=== PATIENT | female | born 1955 | race Caucasian/White ===

== ENCOUNTER 2024-12-15 20:10 | Emergency (ER) | payer OTHER, MEDICAID ==
[~2024-12-15] VITALS: Ht 160 cm; Wt 67.5 kg
[~2024-12-15 20:10] MED LIST: ARIP30TA2 PO; ASPI81CH43 PO; ATOR-507 PO; CALC-239 PO; CALC500C65 PO; CITA-77 PO; CLON0.5T4 PO; CLOP75TA28 PO; GUAI400T13 PO; IBUP-1456 PO; ISOS20TA49 PO; LORA10TA6 PO; MULTTAB99 PO; NIAC-10 PO; NITR0.4S31 SL; NITROLINGUAL SPRAY; PYRI100T51 PO; TOPI100T68 PO; TRAZ-228 PO
--- NOTE | 2024-12-15 21:36 | DVH ---
EXAM: XY L HAND 3V XRAY, XY L FOREARM XRAY CLINICAL INDICATION: Fall/trauma TECHNIQUE: XY L HAND 3V XRAY, XY L FOREARM XRAY, 3 views Comparison: None FINDINGS/IMPRESSION: Nondisplaced distal radial fracture.
--- NOTE | 2024-12-15 21:36 | DVH ---
EXAM: XY L FOREARM XRAY CLINICAL INDICATION: Fall/trauma TECHNIQUE: XY L FOREARM XRAY Comparison: None FINDINGS/IMPRESSION: Nondisplaced distal radial fracture.
--- NOTE | 2024-12-15 21:37 | DVH ---
CLINICAL INDICATION: Fall/trauma TECHNIQUE: 2 radiographic views of the left humerus were obtained. Comparison: None FINDINGS/IMPRESSION: There is no evidence of acute fracture or dislocation. The visualized joint space is well maintained. The alignment is anatomical. There is no radiopaque foreign body.
[2024-12-15] MEDS: HYDROcodone-ACET 10/325MG TAB PO ONE (21:40)
[2024-12-15] MEDS ORDERED: IBUP1TAB5 PO (21:53)
[2024-12-15] MEDS ORDERED: HYDR-4902 PO (21:53)
--- NOTE | 2024-12-15 21:55 | ED.PDOC ---
Musculoskeletal HPI Comments This patient is a 69-year-old female who arrives the ED today for evaluation of the left wrist and forearm pain concerns status post ground level fall approximately 1 hour prior to arrival. Patient states she was at home and trying to exit her screen door that was stuck. She pushed aggressively and when the screen door open, the patient fell forward landing on her left hand, wrist and forearm. Patient denies any head trauma. No blood loss. Vital signs were stable on arrival. Chief Complaint: Upper Extremity Time Seen by MD: 20:11 Primary Care Provider: ALDA Reviewed Notes: Nurses Notes Allergies: Coded Allergies: Cephalexin (Verified Allergy, 01/11/12) Fluoxetine (Verified Allergy, 01/11/12) Prochlorperazine (Verified Allergy, 01/11/12) Home Meds Reported Medications Clonazepam (Clonazepam) 0.5 Mg Tab, 0.5 MG PO TID 01/12/12 Ibuprofen (Ibuprofen) 800 Mg Tab, 800 MG PO Q4HP 01/12/12 Loratadine (Loratadine) 10 Mg Tab, 10 MG PO DAILY 01/12/12 Isosorbide Mononitrate (Isosorbide Mononitrate) 20 Mg Tab, 60 MG PO DAILY 01/12/12 Topiramate (Topiramate) 100 Mg Tab, 100 MG PO BID 01/12/12 Atorvastatin Calcium (Lipitor) 40 Mg Tab, 40 MG PO HS 01/12/12 Multiple Vitamin (Mvi Tab) 1 Tab Tb, 1 TAB PO DAILY 01/12/12 Aspirin (Asa) 81 Mg Ch, 81 MG PO DAILY 01/12/12 Calcium Ascorbate (Vitamin C) 500 Mg Tab, 500 MG PO DAILY 01/12/12 Trazodone Hcl (Trazodone Hcl) 100 Mg Tab, 100 MG PO HS 01/12/12 Citalopram Hydrobromide (Citalopram Hydrobromide) 20 Mg Tab, 20 MG PO DAILY 01/12/12 Calcium Carbonate (Antacid) 500 Mg Chw, 500 MG PO PRN 01/12/12 Pyridoxine Hcl (Vitamin B 6) 100 Mg Tab, 100 MG PO DAILY 01/12/12 Nitroglycerin (Nitroglycerin) 0.4 Mg Sl, 0.4 MG SL Q5MIN 01/12/12 Clopidogrel Bisulfate (Plavix) 75 Mg Tab, 75 MG PO DAILY 01/12/12 [Nitrolingual [place]] No Conflict Check, 400 MCG 01/12/12 Niacin (Antihyperlipidemic) (Niaspan) 500 Mg Tab, 500 MG PO HS 01/12/12 Guaifenesin (Guaifenesin) 400 Mg Tab, 400 MG PO Q4HP 01/12/12 Aripiprazole (Abilify) 30 Mg Tab, 30 MG PO HS 01/12/12 Information Source: Patient Mode of Arrival: Ambulatory Location: Left Extremity Location: Forearm, Wrist Timing: Minutes Prehospital treatment: None Severity: Moderate Able to Move Extremity: Yes Bear Weight: Fully Pain: Moderate Hand Dominance: Right Mechanism: FOOSH Circumstances: Fall Onset of Symptoms: Spontaneous Symptoms: Swelling, Pain DVT Risk Factors: NONE Past Medical History PAST MEDICAL HISTORY: Angina, CVA, High Lipids, HTN, [place] Surgical History: Appendectomy, Hysterectomy, Tonsillectomy Family History Family History: Unobtainable Social History Smoker: Cigarettes Alcohol: Rarely Drugs: Denies Drug Use Lives In: Home Constitutional: denies: chills, diaphoresis, fatigue, fever, malaise, sweats, weakness, others EENTM: denies: blurred vision, double vision, ear bleeding, ear discharge, ear drainage, ear pain, ear ringing, eye pain, eye redness, hearing loss, mouth pain, mouth swelling, nasal discharge, nose bleeding, nose congestion, nose pain, photophobia, tearing, throat pain, throat swelling, voice changes, others Respiratory: denies: cough, hemoptysis, orthopnea, SOB at rest, shortness of breath, SOB with excertion, stridor, wheezing, others Cardiovascular: denies: chest pain, dizzy spells, diaphoresis, Dyspnea on exertion, edema, irregular heart beat, left arm pain, lightheadedness, palpitations, PND, syncope, others Gastrointestinal: denies: abdomen distended, abdominal pain, blood streaked bowels, constipated, diarrhea, dysphagia, difficulty swallowing, hematemesis, melena, nausea, poor appetite, poor fluid intake, rectal bleeding, rectal pain, vomiting, others Genitourinary: denies: abnormal vagina bleeding, burning, dyspareunia, dysuria, flank pain, frequency, hematuria, incontinence, pain, , vagina discharge, urgency, others Neurological: denies: dizziness, fainting, headache, left sided numbness, left sided weakness, numbness, paresthesia, pre-existing deficit, right sided numbness, right sided weakness, seizure, speech problems, tingling, tremors, weakness, others Musculoskeletal: reports: others (Left forearm and left wrist pain); denies: back pain, gout, joint pain, joint swelling, muscle pain, muscle stiffness, neck pain Integumetry: denies: bruises, change in color, change in hair/nails, dryness, laceration, lesions, lumps, rash, wounds, others Allergic/Immunocompromised: denies: Difficulty Healing, Frequent Infections, Hives, Itching, others Hematologic/Lymphatic: denies: anemia, blood clots, easy bleeding, easy bruising, swollen glands, others Endocrine: denies: excessive hunger, excessive sweating, excessive thirst, excessive urination, flushing, intolerance to cold, intolerance to heat, unexplained weight gain, unexplained weight loss, others Psychiatric: denies: anxiety, bipolar disorder, depression, hopeless, panic disorder, schizophrenia, sleepless, suicidal, others All Other Systems: Reviewed and Negative Physical Exam General Appearance: Moderate Distress (Due to forearm and wrist pain concerns.), Normal HEENT: Normal ENT Inspection, Pharynx Normal, TMs Normal Neck: Full Range of Motion, Non-Tender, Normal, Normal Inspection Respiratory: Chest Non-Tender, Lungs Clear, No Accessory Muscle Use, No Respiratory Distress, Normal Breath Sounds Cardiovascular: No Edema, No JVD, No Murmur, No Gallop, Normal Peripheral Pulses, Regular Rate/Rhythm Breast Exam: Deferred Gastrointestinal: No Organomegaly, Non Tender, No Pulsatile Mass, Normal Bowel Sounds, Soft Genitalia: Deferred Pelvic: Deferred Rectal: Deferred Extremities: Other (Diffuse tenderness to palpation throughout the dorsal aspect of the left wrist extending into the hand and proximally into the forearm. Moderate reduced range of motion. No definitive crepitus noted. Distal neurovascularly intact.) Neurologic: Alert, No Motor Deficits, Normal Affect, Normal Mood, No Sensory Deficits Cerebellar Function: Normal Reflexes: Normal Skin: Dry, Normal Color, Warm Lymphatic: No Adenopathy Was a procedure done? Was a procedure done?: No Differential Diagnosis EXT Differential Diagnosis: Fracture, Sprain, Dislocation, Contusion, Strain X-Ray, Labs, Meds, VS Vital Signs Date Time Temp Pulse Resp B/P (MAP) Pulse Ox O2 Delivery O2 Flow Rate FiO2 12/15/24 21:42 92 20 94 Room Air 12/15/24 21:42 97.6 92 20 113/94 (100) 94 97.6 12/15/24 20:56 97.6 88 18 110/54 (72) 96 97.6 Current Medications Medications (Trade) Dose Ordered Sig/Rosita Route Start Time Stop Time Status Last Admin Acetaminophen/ Hydrocodone Bitart ([place] 10/325MG Tab) 1 tab ONCE ONCE PO 12/15/24 20:45 12/15/24 20:46 DC 12/15/24 21:40 X-Ray, Labs, Meds, VS Comment All studies performed the ED were evaluated by me personally. Imaging studies of the humerus, forearm and hand revealed a nondisplaced fracture of the distal radius. Patient was provided with a splint, sling and prescriptions for pain medication at discharge. Patient needs to follow up with the primary care provider in the next five days for re-evaluation and probable cast placement. Time of 1ST Reevaluation: 21:51 Reevaluation 1ST: Improved Consultation: PCP Patient Education/Counseling: Diagnosis, Treatment Family Education/Counseling: Diagnosis, Treatment Departure 1 Departure Time of Disposition: 21:54 Impression: Primary Impression: Nondisplaced fracture of distal end of left radius Disposition: 01 HOME / SELF CARE / HOMELESS Condition: Stable Additional Instructions: Advised patient utilize pain medication as needed for symptomatic relief. Patient should follow up with the primary care provider in five days for re- evaluation and probable cast placement. If patient is unable to follow up with the primary care, please call this facility at [phone] and asked for the orthopedic department supervised by Dr. Elizabeth for assistance with the cast placement. e-Prescriptions Hydrocodone-Acetaminophen (Hydrocodone Bitartrate/AC 5-325 mg) 1 Tab Tab 1 TAB PO Q6HP PRN, #20 TAB Prov: SAEID JAMES PAC 12/15/24 Ibuprofen Micronized (Ibuprofen) 600 Mg Tab 600 MG PO Q6HP PRN, #20 TAB Prov: SAEID JAMES PAC 12/15/24 Discharged With: Self, Friend Critical Care Note Critical Care Time?: No Stability Stability form required: No Heart Score Heart Score: Heart Score Response (Comments) Value History N/A 0 EKG N/A 0 Age N/A 0 Risk Factors N/A 0 Troponin N/A 0 Total 0 SAEID JAMES PAC Dec 15, 2024 21:55
[2024-12-15] MEDS: HYDROMORPHONE HCL 1 MG/ML INJ IM ONE (22:55)
[2024-12-15 22:57] VITALS: PULSE 88; RESP 18; O2SAT 99
[2024-12-15 23:25] VITALS: BP 142/88; PULSE 85; RESP 16; TEMP 98; O2SAT 98
== END 2024-12-15 23:36 | disposition home or self-care (01) ==
LOC: ER 20:10
DX: S52.502A Unspecified fracture of the lower end of left radius, initial encounter for closed fracture (principal); I10 Essential (primary) hypertension; F17.210 Nicotine dependence, cigarettes, uncomplicated; E78.5 Hyperlipidemia, unspecified; I21.9 Acute myocardial infarction, unspecified; Z86.73 Personal history of transient ischemic attack (TIA), and cerebral infarction without residual deficits; Z90.49 Acquired absence of other specified parts of digestive tract; Z90.710 Acquired absence of both cervix and uterus; Z79.02 Long term (current) use of antithrombotics/antiplatelets; Z79.82 Long term (current) use of aspirin; Z79.899 Other long term (current) drug therapy; Z88.1 Allergy status to other antibiotic agents; W19.XXXA Unspecified fall, initial encounter; Y93.89 Activity, other specified; Y92.89 Other specified places as the place of occurrence of the external cause; Y99.8 Other external cause status
CPT/HCPCS: 29125; 73060; 73090; 73130; 96372; 99284; J1170

== ENCOUNTER 2025-01-13 18:07 | Emergency (ER) | payer OTHER, MEDICAID ==
[~2025-01-13] VITALS: Ht 160 cm; Wt 64.1 kg
[~2025-01-13 18:07] MED LIST changes: +HYDR-4902 PO; +IBUP1TAB5 PO
[2025-01-13 18:49] VITALS: BP 153/77; PULSE 91; RESP 16; TEMP 97.6; O2SAT 95
--- NOTE | 2025-01-13 18:50 | ED.PDOC ---
Back pain HPI HPI Comments PT HAS C/O LEFT WRIST PAIN PT STATES 12/15/24 SHE FELL AND CAME INTO THE HOSPITAL AND THEY DIAGNOSED HER WITH A FX PT WAS PLACED IN A SPLINT AND WAS SUPPOSE TO FOLLOW UP WITH ORTHO PT STATES THERE WAS ALWAYS AN ISSUE AND WAS UNABLE TO F/O PT HAS SPLINT ON WITH TAPE WRAPPED AROUND IT. DENIES NEW INJURY/NUMBNESS/WEAKNESS Chief Complaint: Upper Extremity Time Seen by MD: 18:19 Primary Care Provider: ALDA Michael Notes: Nurses Notes, Medications, Allergies Allergies: Coded Allergies: Aripiprazole (Verified Allergy, Unknown, 01/13/25) Cephalexin (Verified Allergy, Unknown, 01/13/25) Fluoxetine (Verified Allergy, Unknown, 01/13/25) Prochlorperazine (Verified Allergy, Unknown, 01/13/25) Home Meds Active Scripts Hydrocodone-Acetaminophen (Hydrocodone Bitartrate/AC 5-325 mg) 1 Tab Tab, 1 TAB PO Q6HP PRN, #20 TAB Prov:SAEID JAMES PAC 12/15/24 Ibuprofen Micronized (Ibuprofen) 600 Mg Tab, 600 MG PO Q6HP PRN, #20 TAB Prov:SAEID JAMES PAC 12/15/24 Reported Medications Clonazepam (Clonazepam) 0.5 Mg Tab, 0.5 MG PO TID 01/12/12 Ibuprofen (Ibuprofen) 800 Mg Tab, 800 MG PO Q4HP 01/12/12 Loratadine (Loratadine) 10 Mg Tab, 10 MG PO DAILY 01/12/12 Isosorbide Mononitrate (Isosorbide Mononitrate) 20 Mg Tab, 60 MG PO DAILY 01/12/12 Topiramate (Topiramate) 100 Mg Tab, 100 MG PO BID 01/12/12 Atorvastatin Calcium (Lipitor) 40 Mg Tab, 40 MG PO HS 01/12/12 Multiple Vitamin (Mvi Tab) 1 Tab Tb, 1 TAB PO DAILY 01/12/12 Aspirin (Asa) 81 Mg Ch, 81 MG PO DAILY 01/12/12 Calcium Ascorbate (Vitamin C) 500 Mg Tab, 500 MG PO DAILY 01/12/12 Trazodone Hcl (Trazodone Hcl) 100 Mg Tab, 100 MG PO HS 01/12/12 Citalopram Hydrobromide (Citalopram Hydrobromide) 20 Mg Tab, 20 MG PO DAILY 01/12/12 Calcium Carbonate (Antacid) 500 Mg Chw, 500 MG PO PRN 01/12/12 Pyridoxine Hcl (Vitamin B 6) 100 Mg Tab, 100 MG PO DAILY 01/12/12 Nitroglycerin (Nitroglycerin) 0.4 Mg Sl, 0.4 MG SL Q5MIN 01/12/12 Clopidogrel Bisulfate (Plavix) 75 Mg Tab, 75 MG PO DAILY 01/12/12 [Nitrolingual [place]] No Conflict Check, 400 MCG 01/12/12 Niacin (Antihyperlipidemic) (Niaspan) 500 Mg Tab, 500 MG PO HS 01/12/12 Guaifenesin (Guaifenesin) 400 Mg Tab, 400 MG PO Q4HP 01/12/12 Aripiprazole (Abilify) 30 Mg Tab, 30 MG PO HS 01/12/12 Mode of Arrival: Ambulatory Past Medical History PAST MEDICAL HISTORY: Angina, CVA, High Lipids, HTN, [place] Surgical History: Appendectomy, Hysterectomy, Tonsillectomy Family History Family History: Unobtainable Social History Smoker: Cigarettes Alcohol: Rarely Drugs: Denies Drug Use Lives In: Home Constitutional: denies: chills, diaphoresis, fatigue, fever, malaise, sweats, weakness, others EENTM: denies: blurred vision, double vision, ear bleeding, ear discharge, ear drainage, ear pain, ear ringing, eye pain, eye redness, hearing loss, mouth pain, mouth swelling, nasal discharge, nose bleeding, nose congestion, nose pain, photophobia, tearing, throat pain, throat swelling, voice changes, others Respiratory: denies: cough, hemoptysis, orthopnea, SOB at rest, shortness of breath, SOB with excertion, stridor, wheezing, others Cardiovascular: denies: chest pain, dizzy spells, diaphoresis, Dyspnea on exertion, edema, irregular heart beat, left arm pain, lightheadedness, palpitations, PND, syncope, others Gastrointestinal: denies: abdomen distended, abdominal pain, blood streaked bowels, constipated, diarrhea, dysphagia, difficulty swallowing, hematemesis, melena, nausea, poor appetite, poor fluid intake, rectal bleeding, rectal pain, vomiting, others Genitourinary: denies: abnormal vagina bleeding, burning, dyspareunia, dysuria, flank pain, frequency, hematuria, incontinence, pain, , vagina discharge, urgency, others Neurological: denies: dizziness, fainting, headache, left sided numbness, left sided weakness, numbness, paresthesia, pre-existing deficit, right sided numbness, right sided weakness, seizure, speech problems, tingling, tremors, weakness, others Musculoskeletal: reports: others (LEFT WRIST PAIN ); denies: back pain, gout, joint pain, joint swelling, muscle pain, muscle stiffness, neck pain Integumetry: denies: bruises, change in color, change in hair/nails, dryness, laceration, lesions, lumps, rash, wounds, others Allergic/Immunocompromised: denies: Difficulty Healing, Frequent Infections, Hives, Itching, others Hematologic/Lymphatic: denies: anemia, blood clots, easy bleeding, easy bruising, swollen glands, others Endocrine: denies: excessive hunger, excessive sweating, excessive thirst, excessive urination, flushing, intolerance to cold, intolerance to heat, unexplained weight gain, unexplained weight loss, others Psychiatric: denies: anxiety, bipolar disorder, depression, hopeless, panic disorder, schizophrenia, sleepless, suicidal, others Physical Exam General Appearance: No Apparent Distress, Normal HEENT: Pharynx Normal Neck: Full Range of Motion, Non-Tender Respiratory: Lungs Clear, No Respiratory Distress, Normal Breath Sounds Cardiovascular: No Murmur, Normal Peripheral Pulses, Regular Rate/Rhythm Breast Exam: Deferred Gastrointestinal: Non Tender, Soft Genitalia: Deferred Pelvic: Deferred Rectal: Deferred Extremities: Normal capillary refill, Normal inspection, Normal range of mynor on, Non-tender Musculoskeletal : Location: Left (SPLINT IN PLACE. ) Apperance: Normal Neurologic: Alert, delinquent account clerk II-XII nml as Tested, No Motor Deficits, Normal Affect, Normal Mood, No Sensory Deficits Cerebellar Function: Normal Reflexes: Normal Skin: Dry, Normal Color, Warm Lymphatic: No Adenopathy Was a procedure done? Was a procedure done?: No Back Pain Differential Dx Differential Diagnosis: Fracture, Musculoskeletal Pain, Strain X-Ray, Labs, Meds, VS Vital Signs Date Time Temp Pulse Resp B/P (MAP) Pulse Ox O2 Delivery O2 Flow Rate FiO2 01/13/25 18:49 97.6 91 16 153/77 (102) 95 97.6 01/13/25 18:49 91 16 95 Room Air 01/13/25 18:22 97.6 91 16 153/77 (102) 95 97.6 Current Medications Medications (Trade) Dose Ordered Sig/Rosita Route Start Time Stop Time Status Last Admin Acetaminophen/ Hydrocodone Bitart ([place] 5/325MG Tab) 1 tab ONCE ONCE PO 01/13/25 19:45 01/13/25 19:46 DC 01/13/25 19:51 X-Ray, Labs, Meds, VS Comment FINDINGS/IMPRESSION: Nondisplaced torus fracture distal radius. The visualized joint space is well maintained. The alignment is anatomical. There is no radiopaque foreign body. [place] 5 MG REPORTS IMPROVEMENT IN PAIN AND FUNCTION REQUESTING DISCHARGE AT THIS TIME. NO CHANGES IN REPEAT X-RAY. PATIENT PLACED A NEW SPLINT. ADVISED TO FOLLOW UP WITH HER ORTHO APPOINTMENT SCHEDULED. ADVISED ON RICE. ADVISED ON ER RETURN PRECAUTIONS PATIENT INDICATES UNDERSTANDING AGREES WITH DISCHARGE PLAN OF CARE. Time of 1ST Reevaluation: 18:20 Reevaluation 1ST: Unchanged Time of 2ND Reevaluation: 20:18 Reevaluation 2ND: Improved Patient Education/Counseling: Diagnosis, Treatment, Prognosis, Need For Follow Up Family Education/Counseling: No Family Present Departure 1 Departure Time of Disposition: 20:24 Impression: Primary Impression: Nondisplaced fracture of distal end of left radius Disposition: 01 HOME / SELF CARE / HOMELESS Condition: Stable Discharged With: Self Critical Care Note Critical Care Time?: No Stability Stability form required: AMARILIS Slaughter January 13, 2025 18:50
--- NOTE | 2025-01-13 19:31 | DVH ---
CLINICAL INDICATION: INJURY TECHNIQUE: 3 radiographic views of the left wrist were obtained. Comparison: None FINDINGS/IMPRESSION: Nondisplaced torus fracture distal radius. The visualized joint space is well maintained. The alignment is anatomical. There is no radiopaque foreign body.
[2025-01-13] MEDS: HYDROcodone-ACET 5/325MG TAB PO ONE (19:51)
== END 2025-01-13 20:30 | disposition home or self-care (01) ==
LOC: ER 18:07
DX: S52.592A Other fractures of lower end of left radius, initial encounter for closed fracture (principal); I10 Essential (primary) hypertension; I20.9 Angina pectoris, unspecified; I25.2 Old myocardial infarction; E78.5 Hyperlipidemia, unspecified; F17.210 Nicotine dependence, cigarettes, uncomplicated; Z86.73 Personal history of transient ischemic attack (TIA), and cerebral infarction without residual deficits; Z90.49 Acquired absence of other specified parts of digestive tract; Z90.710 Acquired absence of both cervix and uterus; Z88.1 Allergy status to other antibiotic agents; Z88.8 Allergy status to other drugs, medicaments and biological substances; Z79.02 Long term (current) use of antithrombotics/antiplatelets; Z79.82 Long term (current) use of aspirin; Z79.899 Other long term (current) drug therapy; W18.39XA Other fall on same level, initial encounter; Y93.89 Activity, other specified; Y92.89 Other specified places as the place of occurrence of the external cause; Y99.8 Other external cause status
CPT/HCPCS: 29125; 73110